=== PATIENT | male | born 1975 | race Caucasian/White ===

== ENCOUNTER 2019-05-17 08:02 | Inpatient (IN) | payer MEDICAID, OTHER ==
[2019-05-17] VITALS (16 sets, daily range): BP systolic 157–202; BP diastolic 82–110
[~2019-05-17] VITALS: Ht 177.8 cm; Wt 120.0 kg
[2019-05-17] MEDS: labetalol 20mg/4ml (5mg/ml) syringe IV PRN ×3 (08:45→11:07)
[2019-05-17 08:55] LABS: BASOPHILS # (AUTO) 0.1 X10'3 (0-0.2); EOSINOPHILS # (AUTO) 0.1 X10'3 (0-0.9); EOSINOPHILS % (AUTO) 0.9 % (0-6); HEMATOCRIT 38.9 % (42.0-52.0); LYMPHOCYTES % (AUTO) 8.6 % (21-51); MEAN CORPUSCULAR HGB CONC 33.4 g/dL (33.0-36.5); MEAN CORPUSCULAR VOLUME 74.9 FL (78-98); MEAN PLATELET VOLUME 8.7 FL (7.4-10.4); MONOCYTES # (AUTO) 0.8 X10'3 (0-0.9); MONOCYTES % (AUTO) 6.5 % (2-12); NEUTROPHILS # (AUTO) 9.7 X10'3 (1.8-7.7); PLATELET COUNT 276 X10'3 (140-440); RED BLOOD COUNT 5.19 X10'6 (4.70-6.10); RED CELL DISTRIBUTION WIDTH 15.6 % (11.5-14.5); WHITE BLOOD COUNT 11.7 X10'3 (4.5-11.0)
[2019-05-17 09:04] LABS: PARTIAL THROMBOPLASTIN TIME 30 SECONDS (22-32)
[2019-05-17 09:10] LABS: ALANINE AMINOTRANSFERASE 31 U/L (12-78); ALBUMIN 4.1 G/DL (3.4-5.0); ALBUMIN/GLOBULIN RATIO 1.1 (1.1-1.5); ALKALINE PHOSPHATASE 79 IU/L (46-116); ANION GAP 13 (8-16); ASPARTATE AMINO TRANSFERASE 18 U/L (10-37); BILIRUBIN,TOTAL 1.2 MG/DL (0.1-1.0); BLOOD UREA NITROGEN 18 MG/DL (7-18); BUN/CREATININE RATIO 12.2 (5.4-32.0); CHLORIDE 102 MMOL/L (99-107); CREATININE 1.47 MG/DL (0.60-1.10); GLUCOSE 104 MG/DL (70-104); SODIUM 141 MMOL/L (135-145); TOTAL CARBON DIOXIDE 25.8 MMOL/L (24-32); eGFR 52 ML/MIN
[2019-05-17] MEDS ORDERED: potassium Cl 20 mEq SR tablet PO ONE (10:00)
[2019-05-17 10:55] LABS: ETHANOL < 0.010 GM/DL (0.0-0.010)
[2019-05-17 11:09] LABS: URINE AMPHETAMINE SCREEN NEGATIVE (Neg); URINE BARBITUATE SCREEN NEGATIVE (Neg); URINE BENZODIAZEPINES SCREEN NEGATIVE (Neg); URINE CANNABINOID SCREEN NEGATIVE (Neg); URINE COCAINE SCREEN NEGATIVE (Neg); URINE METHADONE SCREEN NEGATIVE (Neg); URINE OPIATE SCREEN NEGATIVE (Neg); URINE PHENCYCLIDINE SCREEN NEGATIVE (Neg)
[2019-05-17] MEDS ORDERED: labetalol inj. 200 MG in normal saline 250ml IV soln 210 ML IV SCH ×2 (11:15→13:40)
[2019-05-17] MEDS ORDERED: furosemide 10 MG/1 ML 10ml inj IV ONE (11:15)
[2019-05-17] MEDS ORDERED: NO HOME MEDS (11:18)
--- NOTE | 2019-05-17 11:34 | NUR ---
called the pharmacy regarding pt labetol drip as per joseph from pharmacy they are currently working on and they will bring back whenever its prepared .will wait for the medication to start.
--- NOTE | 2019-05-17 13:18 | NUR ---
SPOKE TO DR SANCHEZ REGARDING THE LABETOLOL DRIP DOSING TO MAINTAIN THE MAP TO 60 MARCEL CAN WE INCREASE THE DRIP RATE TO 1 PER MD NO WE WANT HIS PRESSURE TO BE BELOW 220 .DO NOT CHANGE THE RATE LEAVE IT SAME ITS INFUSING.WILL FOLLOW THE ORDERS.
[2019-05-17] MEDS ORDERED: magnesium 4gm in 100ml NS 100 ML IV PRN (13:30)
[2019-05-17] MEDS ORDERED: magnesium 2GM in 50ml NS 50 ML IV PRN (13:30)
[2019-05-17] MEDS ORDERED: magnesium Cl slow-release 64mg tablet PO PRN (13:30)
[2019-05-17] MEDS ORDERED: acetaminophen 325mg tablet PO PRN (13:30)
[2019-05-17] MEDS ORDERED: ondansetron/PF 4mg/2ml inj IV PRN (13:30)
[2019-05-17] MEDS ORDERED: potassium CL 10mEq/100ml bag 100 ML IV PRN ×2 (13:30)
--- NOTE | 2019-05-17 14:27 | NUR ---
PT URINE OUTPUT 800 ML AFTER THE LASIX.
[2019-05-17] MEDS ORDERED: nitroGLYCERIN-Tridil 50MG/D5W 250 ML IV SCH (14:45)
[2019-05-17] MEDS: nitroGLYCERIN-Tridil 50MG/D5W 250 ML IV SCH (15:11)
--- NOTE | 2019-05-17 16:46 | NUR ---
Patient arrived to PCU and walked to bed. Patient has Nitro gtt running at 5mcg/kg/min. Patient is alert and oriented. Vital signs were obtained and bedside telemetry monitoring was initiated. Patient was oriented to room. Report was called by [facility] ED RN, who informed me that the goal for the Nitro gtt was to keep the patient's SBP below 220 or notify MD.
--- NOTE | 2019-05-17 17:52 | NUR ---
PAGER ID: [phone] MESSAGE: Nikolay Henry. Patient is c/o headache, can we have an order for Tylenol. Savanna [phone]
--- NOTE | 2019-05-17 18:19 | NUR ---
Problems reprioritized. Patient report given, questions answered & plan of care reviewed with Vangie DESHPANDE. Stable at transfer of care.
--- NOTE | 2019-05-17 18:37 | NUR ---
Patient in room PCU 3023. I have received report from Savanna DESHPANDE and Lizet RN and had the opportunity to ask questions and assume patient care.
[2019-05-17] MEDS: acetaminophen 325mg tablet PO PRN (18:38)
[2019-05-17] MEDS: lisinopril 5mg tablet PO SCH (18:40)
[2019-05-17] MEDS: potassium Cl 20 mEq SR tablet PO PRN (20:05)
--- NOTE | 2019-05-17 21:24 | NUR ---
Notified Dr Youisf of BP of 190/93. Patient is currently receiving a Nitro drip at 5mcg/kg/min. No changes at this time. Will continue to monitor.
[2019-05-18] VITALS (13 sets, daily range): BP systolic 153–197; BP diastolic 68–103
[2019-05-18] MEDS: potassium Cl 20 mEq SR tablet PO PRN (00:13)
--- NOTE | 2019-05-18 05:49 | NUR ---
Orientee documentation: I have reviewed and agree with all interventions, assessments performed and documented by Sanjuana DESHPANDE. [facility] Medication Administration: For this medication-pass time frame, all medication were reviewed, dispensed, administered and documented per hospital policy by Sanjuana DESHPANDE.
[2019-05-18 06:02] LABS: ALBUMIN 3.2 G/DL (3.4-5.0); ANION GAP 10 (8-16); BLOOD UREA NITROGEN 21 MG/DL (7-18); BUN/CREATININE RATIO 13.5 (5.4-32.0); CALCIUM 8.6 MG/DL (8.5-10.1); CHLORIDE 107 MMOL/L (99-107); CHOL/HDL RATIO 3.2 (0.00-4.99); CHOLESTEROL 151 MG/DL (0-200); CREATININE 1.55 MG/DL (0.60-1.10); GLUCOSE 100 MG/DL (70-104); HDL CHOLESTEROL 47 MG/DL (35-60); LDL CHOLESTEROL 97 MG/DL (50-100); POTASSIUM 3.5 MMOL/L (3.5-5.1); SODIUM 143 MMOL/L (135-145); TOTAL CARBON DIOXIDE 25.9 MMOL/L (24-32); TRIGLYCERIDES 72 MG/DL (20-135); eGFR 49 ML/MIN
[2019-05-18 06:06] LABS: BASOPHILS # (AUTO) 0.1 X10'3 (0-0.2); BASOPHILS % (AUTO) 0.5 % (0-1); EOSINOPHILS # (AUTO) 0.2 X10'3 (0-0.9); HEMATOCRIT 33.3 % (42.0-52.0); LYMPHOCYTES # (AUTO) 1.2 X10'3 (1.1-4.8); LYMPHOCYTES % (AUTO) 10.9 % (21-51); MEAN CORPUSCULAR HGB CONC 33.2 g/dL (33.0-36.5); MEAN CORPUSCULAR VOLUME 75.4 FL (78-98); MEAN PLATELET VOLUME 9.2 FL (7.4-10.4); MONOCYTES # (AUTO) 0.9 X10'3 (0-0.9); NEUTROPHILS # (AUTO) 8.9 X10'3 (1.8-7.7); NEUTROPHILS % (AUTO) 78.6 % (42-75); PLATELET COUNT 252 X10'3 (140-440); RED BLOOD COUNT 4.41 X10'6 (4.70-6.10); RED CELL DISTRIBUTION WIDTH 15.4 % (11.5-14.5); WHITE BLOOD COUNT 11.3 X10'3 (4.5-11.0)
--- NOTE | 2019-05-18 06:11 | NUR ---
Problems reprioritized. Patient report given, questions answered & plan of care reviewed with Savanna RN and Savanna RN.
--- NOTE | 2019-05-18 06:53 | NUR ---
Patient in room PCU 3013a. I have received report from CHARLEE Vences and CHARLEE Wei and had the opportunity to ask questions and assume patient care. Patient awake in bed, denies any distress or discomfort. Will continue to monitor.
[2019-05-18] MEDS: K and/or MAG REPLACEMENT MC SCH (07:01)
[2019-05-18] MEDS: lisinopril 5mg tablet PO SCH (07:09)
[2019-05-18] MEDS: furosemide 40mg/4ml inj IV SCH (13:03)
[2019-05-18] MEDS ORDERED: labetalol 100mg tablet PO ONE (13:15)
--- NOTE | 2019-05-18 13:15 | NUR ---
Dr. Santillan at bedside, new orders to d/c hydralazine and coreg and give one time dose labetalol 100mg PO x1.
[2019-05-18] MEDS: acetaminophen 325mg tablet PO PRN ×2 (13:27→19:48)
--- NOTE | 2019-05-18 14:22 | NUR ---
Paged Dr. Herman regarding medication changes: PAGER ID: [phone] MESSAGE: Re: [id number] Laron Link. FYI-Per Dr. Santillan, Hydralazine and Coreg stopped and he received one time dose of labetalol 100mg PO. Will continue to monitor BP and heart rate.
--- NOTE | 2019-05-18 15:36 | NUR ---
Dr. Santillan at bedside, new order noted for labetalol 100mg PO q8 hours. Order read back to provider and confirmed. Will continue to monitor patients blood pressure and heart rate.
[2019-05-18] MEDS ORDERED: hyDRALAzine 10mg tablet PO SCH (16:00)
--- NOTE | 2019-05-18 16:30 | NUR ---
Per vacular lab, patient needs to be NPO after midnight for vascular study on 05/19/19.
--- NOTE | 2019-05-18 18:25 | NUR ---
Problems reprioritized. Patient report given, questions answered & plan of care reviewed with CHARLEE Walker.
--- NOTE | 2019-05-18 18:27 | NUR ---
Patient in room PCU 3024O. I have received report from CHARLEE YAÑEZ AND CHARLEE YAÑEZ and had the opportunity to ask questions and assume patient care. PATIENT HAS NITROGLYCERIN GTT INFUSING AT 5 MCG/HR. STABLE AT THIS TIME. WILL CONTINUE TO MONITOR CLOSELY.
--- NOTE | 2019-05-18 18:28 | NUR ---
Orientee documentation: I have reviewed and agree with interventions, assessments performed and documented by Savanna Graves RN. [facility] Medication Administration: For this medication-pass time frame, medication were reviewed, dispensed, administered and documented per hospital policy by Savanna Graves RN.
[2019-05-18] MEDS: labetalol 100mg tablet PO SCH (19:43)
[2019-05-18] MEDS ORDERED: carVEDilol 3.125mg tablet PO SCH (20:00)
[2019-05-19] VITALS (12 sets, daily range): BP systolic 144–190; BP diastolic 76–124
[2019-05-19] MEDS: labetalol 100mg tablet PO SCH ×3 (00:23→15:14)
--- NOTE | 2019-05-19 04:30 | NUR ---
Student documentation: I have reviewed and agree with all interventions, assessments performed and documented by CHARLEE Gomes.
[2019-05-19 05:19] LABS: BASOPHILS # (AUTO) 0.1 X10'3 (0-0.2); BASOPHILS % (AUTO) 0.8 % (0-1); EOSINOPHILS # (AUTO) 0.3 X10'3 (0-0.9); EOSINOPHILS % (AUTO) 2.8 % (0-6); HEMOGLOBIN 11.3 g/dl (14.0-17.9); LYMPHOCYTES # (AUTO) 1.5 X10'3 (1.1-4.8); MEAN CORPUSCULAR HEMOGLOBIN 25.5 PG (27.0-31.0); MEAN CORPUSCULAR HGB CONC 34.3 g/dL (33.0-36.5); MEAN CORPUSCULAR VOLUME 74.4 FL (78-98); MEAN PLATELET VOLUME 8.9 FL (7.4-10.4); MONOCYTES # (AUTO) 0.8 X10'3 (0-0.9); MONOCYTES % (AUTO) 8.6 % (2-12); NEUTROPHILS # (AUTO) 6.9 X10'3 (1.8-7.7); NEUTROPHILS % (AUTO) 71.8 % (42-75); PLATELET COUNT 243 X10'3 (140-440); RED BLOOD COUNT 4.44 X10'6 (4.70-6.10); RED CELL DISTRIBUTION WIDTH 15.3 % (11.5-14.5); WHITE BLOOD COUNT 9.6 X10'3 (4.5-11.0)
[2019-05-19 05:41] LABS: ALBUMIN 3.2 G/DL (3.4-5.0); ANION GAP 9 (8-16); BLOOD UREA NITROGEN 22 MG/DL (7-18); BUN/CREATININE RATIO 12.6 (5.4-32.0); CALCIUM 8.7 MG/DL (8.5-10.1); CHLORIDE 107 MMOL/L (99-107); CREATININE 1.74 MG/DL (0.60-1.10); GLUCOSE 98 MG/DL (70-104); MAGNESIUM 2.1 MG/DL (1.5-2.4); POTASSIUM 3.4 MMOL/L (3.5-5.1); SODIUM 143 MMOL/L (135-145); TOTAL CARBON DIOXIDE 26.9 MMOL/L (24-32); eGFR 43 ML/MIN
--- NOTE | 2019-05-19 06:14 | NUR ---
Problems reprioritized. Patient report given, questions answered & plan of care reviewed with CHARLEE Acosta.
--- NOTE | 2019-05-19 06:18 | NUR ---
Patient in room PCU 3023. I have received report from Annette DESHPANDE and had the opportunity to ask questions and assume patient care. Pt is in bed sleeping, all needs met at this time.
[2019-05-19] MEDS: potassium Cl 20 mEq SR tablet PO PRN ×3 (07:13→17:33)
[2019-05-19] MEDS: furosemide 40mg/4ml inj IV SCH (07:13)
[2019-05-19] MEDS: lisinopril 5mg tablet PO SCH (07:13)
[2019-05-19] MEDS: K and/or MAG REPLACEMENT MC SCH (08:00)
--- NOTE | 2019-05-19 10:14 | NUR ---
Left voicemail to Dr. Herman to call back in regards to elevated BP. will continue to monitor.
--- NOTE | 2019-05-19 12:08 | NUR ---
Spoke to Dr. Virgil lopez inform that pt continues to have elevated BP most recent 171/83 (104), hr 83, No new orders at this time.
--- NOTE | 2019-05-19 14:38 | NUR ---
I SPOKE TO DR MARTINEZ. PT BP 190/100. REVIEWED MEDS. DR MARTINEZ ASKED THAT WE CALL DR JAIMES HE IS IN CHARGE OF PT BP MEDS. WE WILL SPEAK TO DR THEODORE DEGROOT.
--- NOTE | 2019-05-19 14:41 | NUR ---
DR JAIMES INFORMED OF BP ISSUE. HE WILL PLACE NEW ORDERS.
--- NOTE | 2019-05-19 14:41 | NUR ---
Called Dr. Santillan in regards to pt's uncontrolled BP most recent 190/103 (121) HR 84, he is aware and will enter a new medication for him.
[2019-05-19] MEDS: NIFEdipine XL 30mg tablet PO SCH ×2 (15:03→20:02)
--- NOTE | 2019-05-19 16:06 | NUR ---
Clarified Labetalol order w/ Dr. Santillan, New order for Labetalol PO 200 MG Q 8h.
[2019-05-19 16:11] LABS: CLARITY,URINE CLEAR (Clear); COLOR,URINE YELLOW (Yellow); GLUCOSE, URINE NEGATIVE (Neg); KETONES,URINE NEGATIVE (Neg); LEUKOCYTE ESTERASE ,URINE NEGATIVE (Neg); NITRITES, URINE NEGATIVE (Neg); OCCULT BLOOD,URINE NEGATIVE (Neg); PROTEIN,URINE NEGATIVE (Neg); UA COLLECTION TYPE CLN CATCH MIDSTREAM
[2019-05-19 17:16] LABS: UA EOSINOPHILS NO EOS /HPF
--- NOTE | 2019-05-19 18:21 | NUR ---
Problems reprioritized. Patient report given, questions answered & plan of care reviewed with Harjeet DESHPANDE.
[2019-05-19] MEDS: nitroGLYCERIN-Tridil 50MG/D5W 250 ML IV SCH (20:03)
[2019-05-20] VITALS (9 sets, daily range): BP systolic 120–164; BP diastolic 59–90
[2019-05-20] MEDS: labetalol 100mg tablet PO SCH ×4 (00:29→23:35)
[2019-05-20 07:16] LABS: BASOPHILS # (AUTO) 0.1 X10'3 (0-0.2); BASOPHILS % (AUTO) 0.9 % (0-1); EOSINOPHILS # (AUTO) 0.3 X10'3 (0-0.9); EOSINOPHILS % (AUTO) 2.8 % (0-6); HEMATOCRIT 32.8 % (42.0-52.0); HEMOGLOBIN 11.1 g/dl (14.0-17.9); LYMPHOCYTES # (AUTO) 1.4 X10'3 (1.1-4.8); LYMPHOCYTES % (AUTO) 15.2 % (21-51); MEAN CORPUSCULAR HEMOGLOBIN 25.5 PG (27.0-31.0); MEAN CORPUSCULAR HGB CONC 33.7 g/dL (33.0-36.5); MEAN CORPUSCULAR VOLUME 75.8 FL (78-98); MEAN PLATELET VOLUME 9.3 FL (7.4-10.4); MONOCYTES # (AUTO) 0.7 X10'3 (0-0.9); MONOCYTES % (AUTO) 7.8 % (2-12); NEUTROPHILS % (AUTO) 73.3 % (42-75); PLATELET COUNT 246 X10'3 (140-440); RED BLOOD COUNT 4.33 X10'6 (4.70-6.10); RED CELL DISTRIBUTION WIDTH 15.9 % (11.5-14.5); WHITE BLOOD COUNT 9.5 X10'3 (4.5-11.0)
[2019-05-20 07:31] LABS: ALBUMIN 3.2 G/DL (3.4-5.0); ANION GAP 10 (8-16); BLOOD UREA NITROGEN 29 MG/DL (7-18); BUN/CREATININE RATIO 16.6 (5.4-32.0); CALCIUM 8.6 MG/DL (8.5-10.1); CHLORIDE 107 MMOL/L (99-107); CREATININE 1.75 MG/DL (0.60-1.10); GLUCOSE 92 MG/DL (70-104); POTASSIUM 3.8 MMOL/L (3.5-5.1); SODIUM 143 MMOL/L (135-145); TOTAL CARBON DIOXIDE 26.4 MMOL/L (24-32); eGFR 43 ML/MIN
[2019-05-20] MEDS: furosemide 40mg/4ml inj IV SCH (07:57)
[2019-05-20] MEDS: lisinopril 5mg tablet PO SCH (07:57)
[2019-05-20] MEDS: NIFEdipine XL 30mg tablet PO SCH ×2 (07:57→20:18)
[2019-05-20] MEDS: K and/or MAG REPLACEMENT MC SCH (08:00)
[2019-05-20] MEDS: nitroGLYCERIN-Tridil 50MG/D5W 250 ML IV SCH (09:22)
--- NOTE | 2019-05-20 09:48 | NUR ---
Spoke to Dr. Ridley in regards to pt's improved BP, received orders to titrate Nitro to 2mcg/min and to inform him on how he tolerates it.
--- NOTE | 2019-05-20 11:33 | NUR ---
PAGER ID: [phone] MESSAGE: [id number]: FYI BP is trending up after decreasing Nitro to 2mcg, most recent BP 153/90 HR 77. Thanks Dave [id number]
[2019-05-20] MEDS: hyDRALAzine 10mg tablet PO SCH ×3 (12:04→23:35)
[2019-05-20] MEDS ORDERED: hydrALAZINE 20mg/ml inj. IV PRN (17:30)
--- NOTE | 2019-05-20 18:25 | NUR ---
Problems reprioritized. Patient report given, questions answered & plan of care reviewed with Harjeet DESHPANDE.
--- NOTE | 2019-05-20 19:09 | NUR ---
Patient in room PCU 3020F. I have received report from Dave DESHPANDE, and had the opportunity to ask questions and assume patient care
[2019-05-21 03:00] VITALS: BP 138/76
[2019-05-21 06:00] VITALS: BP 130/63
--- NOTE | 2019-05-21 06:22 | NUR ---
Problems reprioritized. Patient report given, questions answered & plan of care reviewed with Dave DESHPANDE
--- NOTE | 2019-05-21 06:48 | NUR ---
Patient in room PCU 3023. I have received report from Harjeet DESHPANDE and had the opportunity to ask questions and assume patient care. Pt is in bed sleeping, all needs met at this time. will continue to monitor.
[2019-05-21 07:04] LABS: BASOPHILS # (AUTO) 0.1 X10'3 (0-0.2); BASOPHILS % (AUTO) 0.7 % (0-1); EOSINOPHILS # (AUTO) 0.3 X10'3 (0-0.9); EOSINOPHILS % (AUTO) 3.1 % (0-6); HEMATOCRIT 35.1 % (42.0-52.0); HEMOGLOBIN 11.8 g/dl (14.0-17.9); LYMPHOCYTES # (AUTO) 1.4 X10'3 (1.1-4.8); LYMPHOCYTES % (AUTO) 14.5 % (21-51); MEAN CORPUSCULAR HGB CONC 33.6 g/dL (33.0-36.5); MEAN CORPUSCULAR VOLUME 74.4 FL (78-98); MONOCYTES # (AUTO) 0.9 X10'3 (0-0.9); MONOCYTES % (AUTO) 9.6 % (2-12); NEUTROPHILS # (AUTO) 6.8 X10'3 (1.8-7.7); NEUTROPHILS % (AUTO) 72.1 % (42-75); PLATELET COUNT 277 X10'3 (140-440); RED BLOOD COUNT 4.72 X10'6 (4.70-6.10); RED CELL DISTRIBUTION WIDTH 15.9 % (11.5-14.5); WHITE BLOOD COUNT 9.4 X10'3 (4.5-11.0)
[2019-05-21 07:17] LABS: ALBUMIN 3.3 G/DL (3.4-5.0); ANION GAP 7 (8-16); BLOOD UREA NITROGEN 33 MG/DL (7-18); CALCIUM 8.9 MG/DL (8.5-10.1); CHLORIDE 107 MMOL/L (99-107); CREATININE 1.74 MG/DL (0.60-1.10); GLUCOSE 96 MG/DL (70-104); MAGNESIUM 2.2 MG/DL (1.5-2.4); POTASSIUM 3.7 MMOL/L (3.5-5.1); SODIUM 141 MMOL/L (135-145); TOTAL CARBON DIOXIDE 27.1 MMOL/L (24-32); eGFR 43 ML/MIN
[2019-05-21] MEDS: lisinopril 5mg tablet PO SCH (07:29)
[2019-05-21] MEDS: furosemide 40mg/4ml inj IV SCH (07:30)
[2019-05-21] MEDS: labetalol 100mg tablet PO SCH (07:30)
[2019-05-21] MEDS: NIFEdipine XL 30mg tablet PO SCH (07:30)
[2019-05-21] MEDS: hyDRALAzine 10mg tablet PO SCH (07:30)
[2019-05-21] MEDS: K and/or MAG REPLACEMENT MC SCH (08:00)
[2019-05-21] MEDS ORDERED: PRO30XLT PO (11:51)
[2019-05-21] MEDS ORDERED: LABE100T5 PO (11:51)
[2019-05-21] MEDS ORDERED: hyDRALAzine tablet PO (11:51)
[2019-05-21] MEDS ORDERED: LISI-642 PO (11:51)
--- NOTE | 2019-05-21 13:09 | NUR ---
Pt is stable for discharge per md order, discharge instructions reviewed w/ pt and all questions answered, new med prescriptions called in to [facility] in [place] per pt preference, mobile 65 removed and returned, PIV dc'ed and clean dry dressing in place, pt is walked down to [facility] with hospital staff, pt discharged at 1250 w/ in private vehicle, all belongings w/ pt at time of discharge.
== END 2019-05-21 12:52 | disposition home or self-care (01) | DRG 194 ==
LOC: ER 08:03 → PCU 3S 16:39
PROVIDERS: ADMIT Internal Medicine; ATTEND Internal Medicine
DX: I13.0 Hypertensive heart and chronic kidney disease with heart failure and stage 1 through stage 4 chronic kidney disease, or unspecified chronic kidney disease (principal); N17.8 Other acute kidney failure; N17.9 Acute kidney failure, unspecified; I50.33 Acute on chronic diastolic (congestive) heart failure; I16.0 Hypertensive urgency; N18.9 Chronic kidney disease, unspecified; I16.1 Hypertensive emergency; Z87.891 Personal history of nicotine dependence; I12.9 Hypertensive chronic kidney disease with stage 1 through stage 4 chronic kidney disease, or unspecified chronic kidney disease
CPT/HCPCS: 36415; 71045; 80048; 80053; 80061; 80305; 80320; 81003; 83735; 84443; 84484; 85025; 85610; 85730; 87081; 87207; 93005; 93306; 93975; 96374; 96375; 99291; G0378; J0360; J1940; J3490; J7050

== ENCOUNTER 2023-11-22 12:28 | Inpatient (IN) | payer MEDICAID, OTHER, SELFPAY ==
[~2023-11-22] VITALS: Ht 177.8 cm; Wt 96.2 kg
[~2023-11-22 12:28] MED LIST: LABE100T8 PO; LISI-642 PO; PRO30XLT PO; hyDRALAzine tablet PO
[2023-11-22 13:02] LABS: BASOPHILS # (AUTO) 0.1 X10'3 (0-0.2); BASOPHILS % (AUTO) 0.5 % (0-1); EOSINOPHILS # (AUTO) 0.1 X10'3 (0-0.9); EOSINOPHILS % (AUTO) 0.4 % (0-6); HEMATOCRIT 41.8 % (42.0-52.0); HEMOGLOBIN 13.7 g/dl (14.0-17.9); LYMPHOCYTES # (AUTO) 0.6 X10'3 (1.1-4.8); LYMPHOCYTES % (AUTO) 4.8 % (21-51); MEAN CORPUSCULAR HGB CONC 32.7 g/dL (33.0-36.5); MEAN CORPUSCULAR VOLUME 76.6 FL (78-98); MEAN PLATELET VOLUME 9.8 FL (7.4-10.4); MONOCYTES # (AUTO) 0.8 X10'3 (0-0.9); MONOCYTES % (AUTO) 6.4 % (2-12); NEUTROPHILS # (AUTO) 10.6 X10'3 (1.8-7.7); NEUTROPHILS % (AUTO) 87.9 % (42-75); PLATELET COUNT 237 X10'3 (140-440); RED BLOOD COUNT 5.46 X10'6 (4.70-6.10); RED CELL DISTRIBUTION WIDTH 15.4 % (11.5-14.5); WHITE BLOOD COUNT 12.1 X10'3 (4.5-11.0)
[2023-11-22 13:14] LABS: ANION GAP 12 (8-16); BLOOD UREA NITROGEN 32 MG/DL (7-18); BUN/CREATININE RATIO 10.8 (10.0-20.0); CALCIUM 9.2 MG/DL (8.5-10.1); CHLORIDE 102 MMOL/L (99-107); CREATININE 2.97 MG/DL (0.60-1.10); GLUCOSE 107 MG/DL (70-104); POTASSIUM 3.4 MMOL/L (3.5-5.1); PRO BRAIN NATRIURETIC PEPTIDE 29135 PG/ML (0-125); SODIUM 141 MMOL/L (135-145); TOTAL CARBON DIOXIDE 27.2 MMOL/L (24-32); eCRCL 31 ML/MIN; eGFR 23 ML/MIN
[2023-11-22 13:47] LABS: PROTHROMBIN TIME 10.9 SECONDS (9.0-12.0)
[2023-11-22] MEDS: niCARDipine-NS 40mg/200ml IVPB IV SCH (14:13)
[2023-11-22] MEDS: morphine 4 MG/ML inj SYRINge IV STA (15:37)
[2023-11-22] MEDS: ondansetron/PF 4mg/2ml inj IV STA (15:37)
[2023-11-22] MEDS ORDERED: magnesium 2GM in 50ml NS 50 ML IV PRN (16:10)
[2023-11-22] MEDS ORDERED: mag hydrox/Alum hydrox/simeth 30ml oral suspension PO PRN (16:10)
[2023-11-22] MEDS ORDERED: magnesium Cl slow-release 64mg tablet PO PRN (16:10)
[2023-11-22] MEDS ORDERED: acetaminophen 325mg tablet PO PRN (16:10)
[2023-11-22] MEDS ORDERED: ondansetron/PF 4mg/2ml inj IV PRN (16:10)
[2023-11-22] MEDS ORDERED: magnesium 4gm in 100ml NS 100 ML IV PRN (16:10)
[2023-11-22] MEDS ORDERED: potassium Cl 40MEQ/1/2NS 520ml 520 ML IV PRN (16:10)
[2023-11-22] MEDS ORDERED: nitroGLYCERIN 25mg/250mL D5W 250 ML IV SCH (16:35)
[2023-11-22 16:45] LABS: GLUCOSE,BODY FLUID 107 MG/DL; LDH,BODY FLUID 95 U/L
[2023-11-22 16:51] LABS: HEMOGLOBIN A1C 4.8 % (4.5-6.2)
[2023-11-22 17:00] LABS: MAGNESIUM 2.2 MG/DL (1.5-2.4)
[2023-11-22] MEDS: nitroGLYCERIN-Tridil 50MG/D5W 250 ML IV SCH (17:20)
[2023-11-22] MEDS: metoprolol succinate 25mg (24-HOUR) SR. Tablet PO SCH (17:31)
[2023-11-22] MEDS: potassium Cl 20 mEq SR tablet PO PRN (17:34)
[2023-11-22 17:40] LABS: LYMPHOCYTES,BODY FLUID 64 %; MONOCYTES,BODY FLUID 33 %; NEUTROPHILS,BODY FLUID 3 %
[2023-11-22 17:44] LABS: BF RBC COUNT 145 /CU MM; BF WBC COUNT 295 /CU MM (0-1000); BFAPPEAR CLEAR; BFCOLOR YELLOW; BFSOURCE RIGHT PLEURAL FLD; BFVOLUME 23 ML
[2023-11-22 17:55] LABS: BILIRUBIN,URINE NEGATIVE (Neg); CLARITY,URINE CLEAR (Clear); COLOR,URINE YELLOW (Yellow); GLUCOSE, URINE NEGATIVE (Neg); KETONES,URINE TRACE mg/dl (Neg); LEUKOCYTE ESTERASE ,URINE NEGATIVE (Neg); NITRITES, URINE NEGATIVE (Neg); OCCULT BLOOD,URINE TRACE-INTACT (Neg); PH,URINE 6.5 (4.8-8.0); PROTEIN,URINE >=300 mg/dl (Neg); UROBILINOGEN,URINE 0.2 E.U/dL (0.2-1.0)
[2023-11-22 18:01] LABS: UA COLLECTION TYPE FOLEY CATH
[2023-11-22 18:03] LABS: CELLULAR CAST 0-4 /LPF (NEGATIVE); SQUAMOUS EPITHELIAL CELL,UR FEW /LPF (FEW)
[2023-11-22 18:04] LABS: BACTERIA,URINE FEW /HPF (Neg); RBC,URINE 0-2 /HPF (0-2); WBC,URINE 0-4 /HPF (0-4)
[2023-11-22 18:05] LABS: TOTAL PROTEIN,URINE RANDOM 441.6 MG/DL
[2023-11-22 18:07] LABS: URINE AMPHETAMINE SCREEN NEGATIVE (Neg); URINE BARBITUATE SCREEN NEGATIVE (Neg); URINE BENZODIAZEPINES SCREEN NEGATIVE (Neg); URINE CANNABINOID SCREEN NEGATIVE (Neg); URINE COCAINE SCREEN NEGATIVE (Neg); URINE METHADONE SCREEN NEGATIVE (Neg); URINE OPIATE SCREEN NEGATIVE (Neg); URINE PHENCYCLIDINE SCREEN NEGATIVE (Neg)
[2023-11-22 19:30] VITALS: BP 186/108; PULSE 90; RESP 16; TEMP 98; O2SAT 93
[2023-11-22] MEDS ORDERED: furosemide 20 MG/2 ML vial IV SCH (20:00)
[2023-11-22] MEDS: K and/or MAG REPLACEMENT MC SCH (20:54)
[2023-11-22] MEDS: docusate sod 100mg capsule PO SCH (20:54)
[2023-11-22] MEDS: furosemide 40mg/4ml inj IV SCH (20:54)
[2023-11-22] MEDS: heparin, porcine 5000 units/ml vial SQ SCH (20:54)
[2023-11-22 22:00] VITALS: BP 176/102; PULSE 87; RESP 18; TEMP 98.2; O2SAT 96
[2023-11-22 23:38] VITALS: RESP 18; O2SAT 96
[2023-11-23] VITALS (17 sets, daily range): BP systolic 150–214; BP diastolic 82–126; PULSE 62–88; RESP 18–23; TEMP 97.8–98.2; O2SAT 92–99
[2023-11-23 06:51] LABS: BASOPHILS # (AUTO) 0.1 X10'3 (0-0.2); EOSINOPHILS # (AUTO) 0.1 X10'3 (0-0.9); HEMOGLOBIN 11.6 g/dl (14.0-17.9); LYMPHOCYTES # (AUTO) 0.5 X10'3 (1.1-4.8); WHITE BLOOD COUNT 10.5 X10'3 (4.5-11.0)
[2023-11-23 06:54] LABS: ABSOLUTE RETICS # 25500 /CUMM (23000-93000); BASOPHILS % (AUTO) 0.6 % (0-1); EOSINOPHILS % (AUTO) 0.9 % (0-6); HEMATOCRIT 33.8 % (42.0-52.0); LYMPHOCYTES % (AUTO) 4.8 % (21-51); MEAN CORPUSCULAR HEMOGLOBIN 26.4 PG (27.0-31.0); MEAN CORPUSCULAR HGB CONC 34.3 g/dL (33.0-36.5); MEAN CORPUSCULAR VOLUME 76.9 FL (78-98); MEAN PLATELET VOLUME 9.8 FL (7.4-10.4); MONOCYTES # (AUTO) 0.9 X10'3 (0-0.9); MONOCYTES % (AUTO) 8.5 % (2-12); NEUTROPHILS % (AUTO) 85.2 % (42-75); PLATELET COUNT 192 X10'3 (140-440); RED BLOOD COUNT 4.39 X10'6 (4.70-6.10); RED CELL DISTRIBUTION WIDTH 14.6 % (11.5-14.5); RETICULOCYTE % (AUTO) 0.6 % (0.5-1.5)
[2023-11-23 07:39] LABS: ALANINE AMINOTRANSFERASE 20 U/L (12-78); ALBUMIN/GLOBULIN RATIO 0.9 (1.1-1.5); ALKALINE PHOSPHATASE 62 IU/L (46-116); ANION GAP 11 (8-16); ASPARTATE AMINO TRANSFERASE 21 U/L (10-37); BILIRUBIN,TOTAL 0.9 MG/DL (0.1-1.0); BLOOD UREA NITROGEN 35 MG/DL (7-18); BUN/CREATININE RATIO 10.5 (10.0-20.0); CALCIUM 8.5 MG/DL (8.5-10.1); CHLORIDE 105 MMOL/L (99-107); CHOL/HDL RATIO 2.1 (0.00-4.99); CHOLESTEROL 143 MG/DL (0-200); CREATININE 3.32 MG/DL (0.60-1.10); FERRITIN 90 NG/ML (26-388); GLUCOSE 97 MG/DL (70-104); HDL CHOLESTEROL 69 MG/DL (35-60); LDL CHOLESTEROL 57 MG/DL (50-100); MAGNESIUM 2.2 MG/DL (1.5-2.4); PHOSPHORUS 5.3 MG/DL (2.3-4.5); POTASSIUM 4.4 MMOL/L (3.5-5.1); SODIUM 141 MMOL/L (135-145); TOTAL CARBON DIOXIDE 25.5 MMOL/L (24-32); TOTAL PROTEIN 6.4 G/DL (6.4-8.2); TRIGLYCERIDES 41 MG/DL (20-135); eCRCL 28 ML/MIN; eGFR 20 ML/MIN
[2023-11-23 08:21] LABS: IRON 24 UG/DL (53-167)
[2023-11-23 09:07] LABS: LACTATE DEHYDROGENASE 197 U/L (85-227)
[2023-11-23] MEDS ORDERED: NO HOME MEDS (11:08)
[2023-11-23] MEDS: amLODIPine 5mg tablet PO SCH (12:58)
[2023-11-23] MEDS: niCARDipine-NS 40mg/200ml IVPB 200 ML IV SCH (15:17)
[2023-11-23] MEDS: chlorthalidone 25mg tablet PO SCH (16:35)
[2023-11-23] MEDS: CefTRIAXone/D5W-Rocephin 1gm 50 ML IV SCH (19:17)
[2023-11-23] MEDS: azithromycin/NS 500mg/250ml 250 ML IV SCH (19:54)
[2023-11-24] VITALS (16 sets, daily range): BP systolic 166–189; BP diastolic 77–98; PULSE 72–86; RESP 15–21; TEMP 97–98.8; O2SAT 94–95
[2023-11-24] MEDS: amLODIPine 5mg tablet PO SCH (07:45)
[2023-11-24 07:56] LABS: BASOPHILS # (AUTO) 0.1 X10'3 (0-0.2); BASOPHILS % (AUTO) 0.8 % (0-1); EOSINOPHILS # (AUTO) 0.2 X10'3 (0-0.9); EOSINOPHILS % (AUTO) 1.7 % (0-6); HEMATOCRIT 35.4 % (42.0-52.0); HEMOGLOBIN 12.1 g/dl (14.0-17.9); LYMPHOCYTES # (AUTO) 0.9 X10'3 (1.1-4.8); LYMPHOCYTES % (AUTO) 8.7 % (21-51); MEAN CORPUSCULAR HEMOGLOBIN 26.2 PG (27.0-31.0); MEAN CORPUSCULAR HGB CONC 34.2 g/dL (33.0-36.5); MEAN CORPUSCULAR VOLUME 76.6 FL (78-98); MEAN PLATELET VOLUME 9.9 FL (7.4-10.4); MONOCYTES # (AUTO) 0.9 X10'3 (0-0.9); MONOCYTES % (AUTO) 8.2 % (2-12); NEUTROPHILS # (AUTO) 8.5 X10'3 (1.8-7.7); NEUTROPHILS % (AUTO) 80.6 % (42-75); PLATELET COUNT 199 X10'3 (140-440); RED BLOOD COUNT 4.62 X10'6 (4.70-6.10); RED CELL DISTRIBUTION WIDTH 14.5 % (11.5-14.5); WHITE BLOOD COUNT 10.6 X10'3 (4.5-11.0)
[2023-11-24 08:27] LABS: ALANINE AMINOTRANSFERASE 20 U/L (12-78); ALBUMIN/GLOBULIN RATIO 0.8 (1.1-1.5); ALKALINE PHOSPHATASE 72 IU/L (46-116); ANION GAP 10 (8-16); ASPARTATE AMINO TRANSFERASE 19 U/L (10-37); BILIRUBIN,TOTAL 0.9 MG/DL (0.1-1.0); BLOOD UREA NITROGEN 42 MG/DL (7-18); CALCIUM 8.5 MG/DL (8.5-10.1); CHLORIDE 104 MMOL/L (99-107); CREATININE 3.49 MG/DL (0.60-1.10); GLUCOSE 89 MG/DL (70-104); PHOSPHORUS 3.7 MG/DL (2.3-4.5); POTASSIUM 3.1 MMOL/L (3.5-5.1); SODIUM 141 MMOL/L (135-145); TOTAL CARBON DIOXIDE 26.9 MMOL/L (24-32); TOTAL PROTEIN 6.8 G/DL (6.4-8.2); eCRCL 27 ML/MIN; eGFR 19 ML/MIN
[2023-11-24] MEDS ORDERED: hyDRALAzine 10mg tablet PO SCH (11:10)
[2023-11-24] MEDS: potassium chloride 10mEq ER tablet PO SCH (12:15)
[2023-11-24] MEDS: hydrALAZINE 25 MG tablet PO ONE (12:20)
[2023-11-24 12:46] LABS: THYROID STIMULATING HORMONE 1.47 ulU/ml (0.34-4.50)
[2023-11-24 13:16] LABS: FREE T4 (FREE THYROXINE) 1.2 NG/DL (0.73-1.40)
[2023-11-24] MEDS: hydrALAZINE 20mg/ml inj. IV PRN (15:35)
[2023-11-24] MEDS: hydrALAZINE 25 MG tablet PO SCH ×2 (16:40→23:58)
[2023-11-24] MEDS ORDERED: metoprolol tartrate 1mg/ml inj IV PRN (16:50)
[2023-11-24] MEDS ORDERED: nitroGLYCERIN 0.4mg SUBLingual tab SL PRN (16:50)
[2023-11-24] MEDS ORDERED: aminophylline 250mg/10ml inj. IV PRN (16:50)
[2023-11-24] MEDS: magnesium hydroxide 30ml (MOM) UD suspension PO PRN (19:57)
[2023-11-24] MEDS ORDERED: furosemide 20MG tablet PO SCH (20:00)
[2023-11-24] MEDS: metoprolol tartrate 1mg/ml inj IV ONE (23:57)
[2023-11-25] VITALS (22 sets, daily range): BP systolic 148–192; BP diastolic 61–97; PULSE 63–90; RESP 12–32; TEMP 97.6–98.9; O2SAT 95–98
[2023-11-25] MEDS: niCARDipine-NS 40mg/200ml IVPB 200 ML IV SCH (01:08)
[2023-11-25 06:32] LABS: BASOPHILS # (AUTO) 0.1 X10'3 (0-0.2); BASOPHILS % (AUTO) 0.8 % (0-1); EOSINOPHILS # (AUTO) 0.2 X10'3 (0-0.9); EOSINOPHILS % (AUTO) 1.5 % (0-6); HEMOGLOBIN 13.1 g/dl (14.0-17.9); LYMPHOCYTES # (AUTO) 0.8 X10'3 (1.1-4.8); LYMPHOCYTES % (AUTO) 7.2 % (21-51); MEAN CORPUSCULAR HEMOGLOBIN 25.5 PG (27.0-31.0); MEAN CORPUSCULAR HGB CONC 33.6 g/dL (33.0-36.5); MEAN PLATELET VOLUME 9.8 FL (7.4-10.4); MONOCYTES % (AUTO) 8.2 % (2-12); NEUTROPHILS # (AUTO) 9.7 X10'3 (1.8-7.7); NEUTROPHILS % (AUTO) 82.3 % (42-75); PLATELET COUNT 245 X10'3 (140-440); RED BLOOD COUNT 5.13 X10'6 (4.70-6.10); RED CELL DISTRIBUTION WIDTH 14.7 % (11.5-14.5); WHITE BLOOD COUNT 11.7 X10'3 (4.5-11.0)
[2023-11-25 07:05] LABS: HIV ANTIBODY 1&2 RAPID NON-REACTIVE (Neg)
[2023-11-25 07:12] LABS: ALANINE AMINOTRANSFERASE 23 U/L (12-78); ALBUMIN 3.1 G/DL (3.4-5.0); ALBUMIN/GLOBULIN RATIO 0.8 (1.1-1.5); ALKALINE PHOSPHATASE 77 IU/L (46-116); ANION GAP 12 (8-16); ASPARTATE AMINO TRANSFERASE 20 U/L (10-37); BILIRUBIN,TOTAL 1.1 MG/DL (0.1-1.0); BLOOD UREA NITROGEN 42 MG/DL (7-18); BUN/CREATININE RATIO 14.1 (10.0-20.0); CALCIUM 8.5 MG/DL (8.5-10.1); CHLORIDE 100 MMOL/L (99-107); CREATININE 2.98 MG/DL (0.60-1.10); GLUCOSE 100 MG/DL (70-104); LACTATE DEHYDROGENASE 166 U/L (85-227); SODIUM 139 MMOL/L (135-145); TOTAL CARBON DIOXIDE 27.3 MMOL/L (24-32); eCRCL 31 ML/MIN; eGFR 23 ML/MIN
[2023-11-25] MEDS: potassium Cl 20 mEq SR tablet PO PRN ×2 (07:47→19:53)
[2023-11-25] MEDS ORDERED: spironolactone 25 MG tablet PO SCH (08:30)
[2023-11-25 08:50] LABS: RHEUM FACTOR QUAL REFLEX TITER NEGATIVE (Neg)
[2023-11-25] MEDS: regadenoson 0.4mg/5ml syringe IV PRN (09:14)
[2023-11-25] MEDS ORDERED: SODIUM BICARBONATE 150MEQ IN D5W 1,000 ML IV ONE (12:35)
[2023-11-25] MEDS: losartan 50mg tablet PO SCH (16:11)
[2023-11-25] MEDS ORDERED: acetylcysteine 200 MG/ml 4ml vial PO SCH (20:00)
[2023-11-26] VITALS (8 sets, daily range): BP systolic 143–184; BP diastolic 73–89; PULSE 57–77; RESP 11–21; TEMP 97.5–98.9; O2SAT 96–98
[2023-11-26 08:26] LABS: BASOPHILS # (AUTO) 0.1 X10'3 (0-0.2); BASOPHILS % (AUTO) 0.6 % (0-1); EOSINOPHILS # (AUTO) 0.2 X10'3 (0-0.9); EOSINOPHILS % (AUTO) 1.6 % (0-6); HEMATOCRIT 39.4 % (42.0-52.0); HEMOGLOBIN 13.1 g/dl (14.0-17.9); LYMPHOCYTES # (AUTO) 0.7 X10'3 (1.1-4.8); MEAN CORPUSCULAR HEMOGLOBIN 25.6 PG (27.0-31.0); MEAN CORPUSCULAR HGB CONC 33.1 g/dL (33.0-36.5); MEAN CORPUSCULAR VOLUME 77.1 FL (78-98); MEAN PLATELET VOLUME 9.8 FL (7.4-10.4); MONOCYTES # (AUTO) 1.2 X10'3 (0-0.9); NEUTROPHILS # (AUTO) 7.8 X10'3 (1.8-7.7); NEUTROPHILS % (AUTO) 78.8 % (42-75); PLATELET COUNT 238 X10'3 (140-440); RED BLOOD COUNT 5.11 X10'6 (4.70-6.10); RED CELL DISTRIBUTION WIDTH 14.7 % (11.5-14.5); WHITE BLOOD COUNT 9.9 X10'3 (4.5-11.0)
[2023-11-26] MEDS: spironolactone 50 MG tablet PO SCH (08:33)
[2023-11-26 09:02] LABS: ALANINE AMINOTRANSFERASE 15 U/L (12-78); ALBUMIN 2.8 G/DL (3.4-5.0); ALBUMIN/GLOBULIN RATIO 0.8 (1.1-1.5); ALKALINE PHOSPHATASE 66 IU/L (46-116); ANION GAP 10 (8-16); ASPARTATE AMINO TRANSFERASE 15 U/L (10-37); BLOOD UREA NITROGEN 41 MG/DL (7-18); BUN/CREATININE RATIO 14.3 (10.0-20.0); CALCIUM 8.6 MG/DL (8.5-10.1); CHLORIDE 102 MMOL/L (99-107); CREATININE 2.87 MG/DL (0.60-1.10); GLUCOSE 101 MG/DL (70-104); PHOSPHORUS 3.3 MG/DL (2.3-4.5); POTASSIUM 3.7 MMOL/L (3.5-5.1); SODIUM 137 MMOL/L (135-145); TOTAL CARBON DIOXIDE 25.1 MMOL/L (24-32); TOTAL PROTEIN 6.5 G/DL (6.4-8.2); eCRCL 33 ML/MIN; eGFR 24 ML/MIN
[2023-11-26] MEDS: losartan 50mg tablet PO ONE (16:20)
[2023-11-26] MEDS: ringers solution, lacted 1,000 ML IV ONE (16:20)
[2023-11-26 16:29] LABS: ANTINUCLEAR ANTIBODIES Negative (Negative); ANTISTREPTOLYSIN O AB 63.5 IU/mL (0.0-200.0); COMPLEMENT C3, SERUM 107 mg/dL (82-167); COMPLEMENT C4, SERUM 28 mg/dL (12-38); HBSAG SCREEN Negative (Negative)
[2023-11-27] VITALS (17 sets, daily range): BP systolic 119–213; BP diastolic 53–98; PULSE 56–85; RESP 12–22; TEMP 97.7–98.8; O2SAT 96–99
[2023-11-27] MEDS: losartan 50mg tablet PO SCH (07:42)
[2023-11-27 08:36] LABS: BASOPHILS # (AUTO) 0.1 X10'3 (0-0.2); BASOPHILS % (AUTO) 0.6 % (0-1); EOSINOPHILS # (AUTO) 0.2 X10'3 (0-0.9); EOSINOPHILS % (AUTO) 2.2 % (0-6); HEMATOCRIT 38.5 % (42.0-52.0); HEMOGLOBIN 13.1 g/dl (14.0-17.9); LYMPHOCYTES # (AUTO) 0.6 X10'3 (1.1-4.8); LYMPHOCYTES % (AUTO) 5.9 % (21-51); MEAN CORPUSCULAR HEMOGLOBIN 26.3 PG (27.0-31.0); MEAN CORPUSCULAR HGB CONC 34.1 g/dL (33.0-36.5); MEAN CORPUSCULAR VOLUME 77.1 FL (78-98); MEAN PLATELET VOLUME 9.4 FL (7.4-10.4); MONOCYTES # (AUTO) 1.2 X10'3 (0-0.9); MONOCYTES % (AUTO) 12.1 % (2-12); NEUTROPHILS # (AUTO) 7.9 X10'3 (1.8-7.7); NEUTROPHILS % (AUTO) 79.2 % (42-75); PLATELET COUNT 265 X10'3 (140-440)
[2023-11-27 08:51] LABS: PRE OP PARTIAL THROMB. TIME 33 SECONDS (22-32); PROTHROMBIN TIME 10.9 SECONDS (9.0-12.0)
[2023-11-27 08:56] LABS: ALANINE AMINOTRANSFERASE 21 U/L (12-78); ALBUMIN 2.7 G/DL (3.4-5.0); ALBUMIN/GLOBULIN RATIO 0.7 (1.1-1.5); ALKALINE PHOSPHATASE 65 IU/L (46-116); ANION GAP 8 (8-16); ASPARTATE AMINO TRANSFERASE 22 U/L (10-37); BILIRUBIN,TOTAL 0.7 MG/DL (0.1-1.0); BLOOD UREA NITROGEN 44 MG/DL (7-18); BUN/CREATININE RATIO 14.6 (10.0-20.0); CALCIUM 8.2 MG/DL (8.5-10.1); CHLORIDE 103 MMOL/L (99-107); CREATININE 3.01 MG/DL (0.60-1.10); GLUCOSE 100 MG/DL (70-104); MAGNESIUM 1.9 MG/DL (1.5-2.4); PHOSPHORUS 3.9 MG/DL (2.3-4.5); POTASSIUM 3.9 MMOL/L (3.5-5.1); SODIUM 137 MMOL/L (135-145); TOTAL CARBON DIOXIDE 25.8 MMOL/L (24-32); TOTAL PROTEIN 6.6 G/DL (6.4-8.2); eCRCL 31 ML/MIN; eGFR 22 ML/MIN
[2023-11-27 16:05] LABS: ATYPICAL PANCA <1:20 titer (Neg:<1:20); CYTOPLASMIC (C-ANCA) <1:20 titer (Neg:<1:20); PERINUCLEAR (P-ANCA) <1:20 titer (Neg:<1:20)
[2023-11-27] MEDS ORDERED: propofol inj 20 ML IV ONE (17:25)
[2023-11-27] MEDS ORDERED: MIDAZolam 1mg/ml 10ml vial ONE (17:25)
[2023-11-27] MEDS ORDERED: fentaNYL /PF 50mcg/ml 5ml ampule ONE (17:25)
[2023-11-27] MEDS ORDERED: rocuronium 10mg/ml inj IV ONE ×2 (17:30)
[2023-11-27] MEDS ORDERED: sevoflurane 250ml liquid IH ONE (17:36)
[2023-11-27] MEDS ORDERED: ceFAZolin 1000mg inj ONE ×2 (18:45)
[2023-11-27] MEDS: TALC 4 GM VIAL ***intrapleural administration only IX ONE ×2 (19:05→21:55)
[2023-11-27] MEDS ORDERED: morphine 4 MG/ML inj SYRINge IV PRN ×2 (19:15→20:45)
[2023-11-27] MEDS ORDERED: ringers solution, lacted 1,000 ML IV SCH (19:15)
[2023-11-27] MEDS ORDERED: ondansetron/PF 4mg/2ml inj IV PRN ×2 (19:15→20:45)
[2023-11-27] MEDS ORDERED: meperidine/PF 25mg/ml syringe IV PRN ×3 (19:15)
[2023-11-27] MEDS ORDERED: morphine 2 MG/ML inj. syringe IV PRN ×2 (19:15→20:45)
[2023-11-27] MEDS ORDERED: albuterol 2.5 MG/3 ML nebule NEB PRN (20:45)
[2023-11-27] MEDS ORDERED: metoclopramide 5 mg/ml inj IV PRN (20:45)
[2023-11-27] MEDS: propofol 1000mg/100ml bottle 100 ML IV SCH (21:00)
[2023-11-27] MEDS: FENTANYL-0.9 % NACL/PF 100 ML IV PRN (21:02)
[2023-11-27 21:05] LABS: ABG OXYGEN SATURATION 98.8 % (94-97); ABG PCO2 (T) 38.1 mmHg (35.0-48.0); ABG PH (T) 7.377 (7.340-7.440); ABG PO2 (T) 129.6 mmHg (75.0-100.0); FCOHb 0.8 % (0.0-3.9); FHHb 1.2 % (0.0-5.0); FMetHb 0.3 % (0.0-1.5); FO2Hb 97.7 % (94-97); PATIENT TEMPERATURE 36.4; RESPIRATORY RATE 12 b/min; TIDAL VOLUME 600 mL; TOTAL HEMOGLOBIN 12.8 G/dl (14.0-17.9)
[2023-11-27 21:15] LABS: BASOPHILS % (AUTO) 0.3 % (0-1); EOSINOPHILS # (AUTO) 0.2 X10'3 (0-0.9); EOSINOPHILS % (AUTO) 1.1 % (0-6); HEMATOCRIT 36.5 % (42.0-52.0); LYMPHOCYTES # (AUTO) 0.6 X10'3 (1.1-4.8); LYMPHOCYTES % (AUTO) 3.7 % (21-51); MEAN CORPUSCULAR HEMOGLOBIN 25.3 PG (27.0-31.0); MEAN CORPUSCULAR HGB CONC 32.9 g/dL (33.0-36.5); MEAN CORPUSCULAR VOLUME 76.9 FL (78-98); MEAN PLATELET VOLUME 9.3 FL (7.4-10.4); MONOCYTES # (AUTO) 1.2 X10'3 (0-0.9); MONOCYTES % (AUTO) 7.8 % (2-12); NEUTROPHILS % (AUTO) 87.1 % (42-75); PLATELET COUNT 326 X10'3 (140-440); RED BLOOD COUNT 4.75 X10'6 (4.70-6.10)
[2023-11-27 21:26] LABS: ALBUMIN 2.4 G/DL (3.4-5.0); ANION GAP 10 (8-16); BLOOD UREA NITROGEN 45 MG/DL (7-18); BUN/CREATININE RATIO 13.4 (10.0-20.0); CALCIUM 8.6 MG/DL (8.5-10.1); CHLORIDE 106 MMOL/L (99-107); CREATININE 3.36 MG/DL (0.60-1.10); GLUCOSE 124 MG/DL (70-104); MAGNESIUM 2.3 MG/DL (1.5-2.4); POTASSIUM 4.4 MMOL/L (3.5-5.1); SODIUM 141 MMOL/L (135-145); TOTAL CARBON DIOXIDE 25.1 MMOL/L (24-32); eCRCL 28 ML/MIN; eGFR 20 ML/MIN
[2023-11-27] MEDS: sterile Talc 2 GM powder vial IPL ONE (21:54)
[2023-11-27] MEDS: sterile Talc 3 GM powder vial (for IntraPleural Use ONLY) IPL ONE (21:55)
[2023-11-27] MEDS: dextrose 5%-1/2 normal saline 1,000 ML IV SCH (22:03)
[2023-11-28] VITALS (32 sets, daily range): BP systolic 110–180; BP diastolic 52–88; PULSE 54–85; RESP 11–21; O2SAT 91–99
[2023-11-28 02:45] LABS: BASOPHILS % (AUTO) 0 % (0-1); EOSINOPHILS % (AUTO) 0.1 % (0-6); HEMATOCRIT 34.6 % (42.0-52.0); HEMOGLOBIN 11.3 g/dl (14.0-17.9); LYMPHOCYTES # (AUTO) 0.2 X10'3 (1.1-4.8); LYMPHOCYTES % (AUTO) 0.9 % (21-51); MEAN CORPUSCULAR HEMOGLOBIN 25.3 PG (27.0-31.0); MEAN CORPUSCULAR HGB CONC 32.7 g/dL (33.0-36.5); MEAN CORPUSCULAR VOLUME 77.2 FL (78-98); MEAN PLATELET VOLUME 9.4 FL (7.4-10.4); MONOCYTES # (AUTO) 2.1 X10'3 (0-0.9); MONOCYTES % (AUTO) 9.5 % (2-12); NEUTROPHILS # (AUTO) 20.1 X10'3 (1.8-7.7); NEUTROPHILS % (AUTO) 89.5 % (42-75); PLATELET COUNT 313 X10'3 (140-440); RED BLOOD COUNT 4.48 X10'6 (4.70-6.10); RED CELL DISTRIBUTION WIDTH 14.8 % (11.5-14.5); WHITE BLOOD COUNT 22.5 X10'3 (4.5-11.0)
[2023-11-28 03:16] LABS: ALANINE AMINOTRANSFERASE 35 U/L (12-78); ALBUMIN 2.2 G/DL (3.4-5.0); ALBUMIN/GLOBULIN RATIO 0.6 (1.1-1.5); ALKALINE PHOSPHATASE 50 IU/L (46-116); ANION GAP 11 (8-16); ASPARTATE AMINO TRANSFERASE 36 U/L (10-37); BILIRUBIN,TOTAL 0.5 MG/DL (0.1-1.0); BLOOD UREA NITROGEN 49 MG/DL (7-18); BUN/CREATININE RATIO 12.5 (10.0-20.0); CALCIUM 8.3 MG/DL (8.5-10.1); CHLORIDE 106 MMOL/L (99-107); CREATININE 3.92 MG/DL (0.60-1.10); GLUCOSE 155 MG/DL (70-104); MAGNESIUM 2.2 MG/DL (1.5-2.4); PHOSPHORUS 6.2 MG/DL (2.3-4.5); SODIUM 140 MMOL/L (135-145); TOTAL CARBON DIOXIDE 23.5 MMOL/L (24-32); TOTAL PROTEIN 5.7 G/DL (6.4-8.2); TRIGLYCERIDES 54 MG/DL (20-135); eCRCL 24 ML/MIN; eGFR 16 ML/MIN
[2023-11-28 03:37] LABS: ABG BASE EXCESS -3.7 mmol/L (-2.0-2.0); ABG HCO3 21.5 mmol/L (22.0-26.0); ABG OXYGEN SATURATION 96.5 % (94-97); ABG PCO2 (T) 39.7 mmHg (35.0-48.0); ABG PH (T) 7.353 (7.340-7.440); ABG PO2 (T) 85.6 mmHg (75.0-100.0); FCOHb 0.7 % (0.0-3.9); FHHb 3.5 % (0.0-5.0); FMetHb 0.3 % (0.0-1.5); FO2Hb 95.5 % (94-97); PATIENT TEMPERATURE 37.1; RESPIRATORY RATE 12 b/min; TIDAL VOLUME 600 mL; TOTAL HEMOGLOBIN 12.1 G/dl (14.0-17.9)
[2023-11-28] MEDS ORDERED: naloxone 0.4 mg/ml inj IV PRN (11:20)
[2023-11-28] MEDS: gabapentin 300mg capsule PO SCH (11:42)
[2023-11-28] MEDS: PCA WASTE DOCUMENTATION 1 MG ML MC SCH (12:00)
[2023-11-28] MEDS: HYDROmorph/NS 0.2 mg/ml PCA 100 ML IV SCH ×2 (13:00→19:00)
[2023-11-28] MEDS ORDERED: mineral oil/petrolatum ophthal oint EACHEYE SCH (20:00)
[2023-11-29] VITALS (26 sets, daily range): BP systolic 115–153; BP diastolic 47–71; PULSE 54–74; RESP 12–21; O2SAT 93–99
[2023-11-29 03:52] LABS: BASOPHILS # (AUTO) 0.1 X10'3 (0-0.2); BASOPHILS % (AUTO) 0.4 % (0-1); EOSINOPHILS # (AUTO) 0.1 X10'3 (0-0.9); EOSINOPHILS % (AUTO) 1.1 % (0-6); HEMATOCRIT 33.9 % (42.0-52.0); HEMOGLOBIN 11.1 g/dl (14.0-17.9); LYMPHOCYTES # (AUTO) 0.7 X10'3 (1.1-4.8); LYMPHOCYTES % (AUTO) 5.2 % (21-51); MEAN CORPUSCULAR HEMOGLOBIN 25.2 PG (27.0-31.0); MEAN CORPUSCULAR HGB CONC 32.7 g/dL (33.0-36.5); MEAN CORPUSCULAR VOLUME 77.3 FL (78-98); MEAN PLATELET VOLUME 9.6 FL (7.4-10.4); MONOCYTES # (AUTO) 1.9 X10'3 (0-0.9); MONOCYTES % (AUTO) 13.4 % (2-12); NEUTROPHILS # (AUTO) 11.2 X10'3 (1.8-7.7); NEUTROPHILS % (AUTO) 79.9 % (42-75); PLATELET COUNT 278 X10'3 (140-440); RED BLOOD COUNT 4.39 X10'6 (4.70-6.10); RED CELL DISTRIBUTION WIDTH 14.9 % (11.5-14.5)
[2023-11-29 04:27] LABS: ALANINE AMINOTRANSFERASE 19 U/L (12-78); ALBUMIN 2.1 G/DL (3.4-5.0); ALBUMIN/GLOBULIN RATIO 0.6 (1.1-1.5); ALKALINE PHOSPHATASE 49 IU/L (46-116); ANION GAP 12 (8-16); ASPARTATE AMINO TRANSFERASE 27 U/L (10-37); BILIRUBIN,TOTAL 0.6 MG/DL (0.1-1.0); BLOOD UREA NITROGEN 52 MG/DL (7-18); CALCIUM 8.5 MG/DL (8.5-10.1); CHLORIDE 103 MMOL/L (99-107); CREATININE 4.35 MG/DL (0.60-1.10); GLUCOSE 91 MG/DL (70-104); MAGNESIUM 2.4 MG/DL (1.5-2.4); PHOSPHORUS 6.1 MG/DL (2.3-4.5); POTASSIUM 4.5 MMOL/L (3.5-5.1); SODIUM 137 MMOL/L (135-145); TOTAL CARBON DIOXIDE 21.7 MMOL/L (24-32); TOTAL PROTEIN 5.9 G/DL (6.4-8.2); eCRCL 21 ML/MIN; eGFR 15 ML/MIN
[2023-11-29] MEDS: gabapentin 300mg capsule PO SCH (07:58)
[2023-11-29 12:18] LABS: BILIRUBIN,URINE NEGATIVE (Neg); CLARITY,URINE CLEAR (Clear); COLOR,URINE YELLOW (Yellow); GLUCOSE, URINE NEGATIVE (Neg); KETONES,URINE NEGATIVE (Neg); LEUKOCYTE ESTERASE ,URINE NEGATIVE (Neg); NITRITES, URINE NEGATIVE (Neg); OCCULT BLOOD,URINE NEGATIVE (Neg); PH,URINE 5.5 (4.8-8.0); PROTEIN,URINE TRACE mg/dl (Neg); UROBILINOGEN,URINE 0.2 E.U/dL (0.2-1.0)
[2023-11-29 12:22] LABS: UA COLLECTION TYPE NON-SPECIFIED
[2023-11-29 12:30] LABS: COARSE GRANULAR CAST 0-3 /LPF (NEGATIVE)
[2023-11-29 12:33] LABS: BACTERIA,URINE FEW /HPF (Neg); RBC,URINE 0-2 /HPF (0-2); SQUAMOUS EPITHELIAL CELL,UR FEW /LPF (FEW); TRANSITIONAL EPI CELLS,URINE MODERATE /HPF; WBC,URINE 0-4 /HPF (0-4)
[2023-11-29 23:10] LABS: ALDOSTERONE 7.2 ng/dL (.)
[2023-11-30] VITALS (20 sets, daily range): BP systolic 120–167; BP diastolic 57–78; PULSE 61–86; RESP 11–21; TEMP 97–99.1; O2SAT 90–99
[2023-11-30 03:21] LABS: BASOPHILS # (AUTO) 0.1 X10'3 (0-0.2); BASOPHILS % (AUTO) 0.5 % (0-1); EOSINOPHILS # (AUTO) 0.2 X10'3 (0-0.9); EOSINOPHILS % (AUTO) 1.8 % (0-6); HEMATOCRIT 32.5 % (42.0-52.0); HEMOGLOBIN 10.7 g/dl (14.0-17.9); LYMPHOCYTES # (AUTO) 0.8 X10'3 (1.1-4.8); LYMPHOCYTES % (AUTO) 6.8 % (21-51); MEAN CORPUSCULAR HEMOGLOBIN 25.4 PG (27.0-31.0); MEAN PLATELET VOLUME 9.5 FL (7.4-10.4); MONOCYTES # (AUTO) 1.5 X10'3 (0-0.9); MONOCYTES % (AUTO) 13.3 % (2-12); NEUTROPHILS % (AUTO) 77.6 % (42-75); PLATELET COUNT 281 X10'3 (140-440); RED BLOOD COUNT 4.22 X10'6 (4.70-6.10); RED CELL DISTRIBUTION WIDTH 15.1 % (11.5-14.5); WHITE BLOOD COUNT 11.5 X10'3 (4.5-11.0)
[2023-11-30 03:30] LABS: ALANINE AMINOTRANSFERASE 16 U/L (12-78); ALBUMIN 1.9 G/DL (3.4-5.0); ALBUMIN/GLOBULIN RATIO 0.5 (1.1-1.5); ALKALINE PHOSPHATASE 60 IU/L (46-116); ANION GAP 10 (8-16); ASPARTATE AMINO TRANSFERASE 22 U/L (10-37); BILIRUBIN,TOTAL 0.4 MG/DL (0.1-1.0); BLOOD UREA NITROGEN 63 MG/DL (7-18); BUN/CREATININE RATIO 14.5 (10.0-20.0); CALCIUM 8.3 MG/DL (8.5-10.1); CHLORIDE 101 MMOL/L (99-107); CREATININE 4.34 MG/DL (0.60-1.10); GLUCOSE 94 MG/DL (70-104); MAGNESIUM 2.3 MG/DL (1.5-2.4); PHOSPHORUS 6.1 MG/DL (2.3-4.5); POTASSIUM 4.3 MMOL/L (3.5-5.1); SODIUM 135 MMOL/L (135-145); TOTAL PROTEIN 5.6 G/DL (6.4-8.2); eCRCL 21 ML/MIN; eGFR 15 ML/MIN
[2023-11-30 10:23] LABS: NORMETANEPHRINE, PL 149.9 pg/mL (0.0-218.9)
[2023-11-30] MEDS: PCA WASTE DOCUMENTATION 1 MG ML MC SCH (10:42)
[2023-11-30] MEDS: traZODone 50mg tablet PO SCH (20:36)
[2023-11-30] MEDS: magnesium hydroxide 30ml (MOM) UD suspension PO ONE (20:36)
[2023-12-01] VITALS (11 sets, daily range): BP systolic 118–172; BP diastolic 49–78; PULSE 62–75; RESP 14–20; TEMP 97.9–99.4; O2SAT 94–100
[2023-12-01 07:52] LABS: BASOPHILS # (AUTO) 0.1 X10'3 (0-0.2); BASOPHILS % (AUTO) 0.8 % (0-1); EOSINOPHILS # (AUTO) 0.2 X10'3 (0-0.9); EOSINOPHILS % (AUTO) 2.2 % (0-6); HEMATOCRIT 34.5 % (42.0-52.0); HEMOGLOBIN 11.7 g/dl (14.0-17.9); LYMPHOCYTES # (AUTO) 0.7 X10'3 (1.1-4.8); LYMPHOCYTES % (AUTO) 7.2 % (21-51); MEAN CORPUSCULAR HGB CONC 33.8 g/dL (33.0-36.5); MEAN PLATELET VOLUME 9.2 FL (7.4-10.4); MONOCYTES # (AUTO) 1.1 X10'3 (0-0.9); MONOCYTES % (AUTO) 11.5 % (2-12); NEUTROPHILS # (AUTO) 7.4 X10'3 (1.8-7.7); NEUTROPHILS % (AUTO) 78.3 % (42-75); PLATELET COUNT 296 X10'3 (140-440); RED BLOOD COUNT 4.49 X10'6 (4.70-6.10); WHITE BLOOD COUNT 9.5 X10'3 (4.5-11.0)
[2023-12-01 08:18] LABS: ALANINE AMINOTRANSFERASE 21 U/L (12-78); ALBUMIN 2.1 G/DL (3.4-5.0); ALBUMIN/GLOBULIN RATIO 0.5 (1.1-1.5); ALKALINE PHOSPHATASE 66 IU/L (46-116); ANION GAP 9 (8-16); ASPARTATE AMINO TRANSFERASE 20 U/L (10-37); BILIRUBIN,TOTAL 0.4 MG/DL (0.1-1.0); BLOOD UREA NITROGEN 63 MG/DL (7-18); BUN/CREATININE RATIO 17.2 (10.0-20.0); CALCIUM 8.2 MG/DL (8.5-10.1); CHLORIDE 101 MMOL/L (99-107); CREATININE 3.66 MG/DL (0.60-1.10); GLUCOSE 96 MG/DL (70-104); MAGNESIUM 2.3 MG/DL (1.5-2.4); PHOSPHORUS 4.4 MG/DL (2.3-4.5); POTASSIUM 4.1 MMOL/L (3.5-5.1); SODIUM 133 MMOL/L (135-145); TOTAL CARBON DIOXIDE 22.8 MMOL/L (24-32); TOTAL PROTEIN 6.1 G/DL (6.4-8.2); eCRCL 25 ML/MIN; eGFR 18 ML/MIN
[2023-12-01] MEDS: HYDROcodone/acetaminophen 10/325mg tab PO PRN (09:22)
[2023-12-02] VITALS (9 sets, daily range): BP systolic 143–173; BP diastolic 66–75; PULSE 62–77; RESP 12–19; TEMP 97.1–98.1; O2SAT 95–96
[2023-12-02] MEDS: CefTRIAXone 2gm/D5W 50ml BAG 50 ML IV SCH (07:07)
[2023-12-02] MEDS: HYDROcodone/acetaminophen 10/325mg tab PO PRN (07:09)
[2023-12-02 07:12] LABS: BASOPHILS # (AUTO) 0.1 X10'3 (0-0.2); EOSINOPHILS # (AUTO) 0.3 X10'3 (0-0.9); HEMOGLOBIN 12.1 g/dl (14.0-17.9); LYMPHOCYTES # (AUTO) 0.9 X10'3 (1.1-4.8); LYMPHOCYTES % (AUTO) 9.9 % (21-51); MEAN CORPUSCULAR HGB CONC 33.6 g/dL (33.0-36.5); MEAN CORPUSCULAR VOLUME 77.4 FL (78-98); MEAN PLATELET VOLUME 8.7 FL (7.4-10.4); MONOCYTES # (AUTO) 1.1 X10'3 (0-0.9); MONOCYTES % (AUTO) 12.5 % (2-12); NEUTROPHILS # (AUTO) 6.6 X10'3 (1.8-7.7); NEUTROPHILS % (AUTO) 73.6 % (42-75); PLATELET COUNT 320 X10'3 (140-440); RED BLOOD COUNT 4.65 X10'6 (4.70-6.10); RED CELL DISTRIBUTION WIDTH 14.9 % (11.5-14.5)
[2023-12-02 07:29] LABS: ALANINE AMINOTRANSFERASE 18 U/L (12-78); ALBUMIN 2.2 G/DL (3.4-5.0); ALBUMIN/GLOBULIN RATIO 0.5 (1.1-1.5); ALKALINE PHOSPHATASE 69 IU/L (46-116); ANION GAP 10 (8-16); ASPARTATE AMINO TRANSFERASE 18 U/L (10-37); BILIRUBIN,TOTAL 0.3 MG/DL (0.1-1.0); BLOOD UREA NITROGEN 71 MG/DL (7-18); BUN/CREATININE RATIO 19.9 (10.0-20.0); CALCIUM 8.7 MG/DL (8.5-10.1); CHLORIDE 101 MMOL/L (99-107); CREATININE 3.56 MG/DL (0.60-1.10); GLUCOSE 96 MG/DL (70-104); MAGNESIUM 2.4 MG/DL (1.5-2.4); PHOSPHORUS 5.2 MG/DL (2.3-4.5); POTASSIUM 4.2 MMOL/L (3.5-5.1); SODIUM 135 MMOL/L (135-145); TOTAL CARBON DIOXIDE 23.9 MMOL/L (24-32); TOTAL PROTEIN 6.5 G/DL (6.4-8.2); eCRCL 26 ML/MIN; eGFR 18 ML/MIN
[2023-12-02 19:50] LABS: RENIN, PLASMA 6.4 ng/mL/hr (.)
[2023-12-03] VITALS: BP 153/68; PULSE 62; RESP 14; TEMP 97.7; O2SAT 95
[2023-12-03 06:00] VITALS: BP 135/78; PULSE 80; RESP 20; TEMP 97.8; O2SAT 96
[2023-12-03 08:00] VITALS: RESP 20; O2SAT 96
[2023-12-03 09:19] LABS: BASOPHILS # (AUTO) 0.1 X10'3 (0-0.2); BASOPHILS % (AUTO) 0.9 % (0-1); EOSINOPHILS # (AUTO) 0.2 X10'3 (0-0.9); EOSINOPHILS % (AUTO) 2.7 % (0-6); HEMATOCRIT 36.6 % (42.0-52.0); HEMOGLOBIN 12.1 g/dl (14.0-17.9); LYMPHOCYTES # (AUTO) 0.5 X10'3 (1.1-4.8); LYMPHOCYTES % (AUTO) 6.4 % (21-51); MEAN CORPUSCULAR HEMOGLOBIN 25.6 PG (27.0-31.0); MEAN CORPUSCULAR HGB CONC 33.1 g/dL (33.0-36.5); MEAN CORPUSCULAR VOLUME 77.4 FL (78-98); MONOCYTES # (AUTO) 0.9 X10'3 (0-0.9); MONOCYTES % (AUTO) 10.9 % (2-12); NEUTROPHILS # (AUTO) 6.8 X10'3 (1.8-7.7); NEUTROPHILS % (AUTO) 79.1 % (42-75); PLATELET COUNT 345 X10'3 (140-440); RED BLOOD COUNT 4.73 X10'6 (4.70-6.10); RED CELL DISTRIBUTION WIDTH 14.6 % (11.5-14.5); WHITE BLOOD COUNT 8.6 X10'3 (4.5-11.0)
[2023-12-03 09:51] LABS: ALANINE AMINOTRANSFERASE 21 U/L (12-78); ALBUMIN 2.3 G/DL (3.4-5.0); ALBUMIN/GLOBULIN RATIO 0.6 (1.1-1.5); ALKALINE PHOSPHATASE 56 IU/L (46-116); ANION GAP 9 (8-16); ASPARTATE AMINO TRANSFERASE 16 U/L (10-37); BILIRUBIN,TOTAL 0.3 MG/DL (0.1-1.0); BLOOD UREA NITROGEN 64 MG/DL (7-18); BUN/CREATININE RATIO 20.6 (10.0-20.0); CALCIUM 8.9 MG/DL (8.5-10.1); CHLORIDE 104 MMOL/L (99-107); CREATININE 3.11 MG/DL (0.60-1.10); GLUCOSE 102 MG/DL (70-104); POTASSIUM 4.4 MMOL/L (3.5-5.1); SODIUM 137 MMOL/L (135-145); TOTAL CARBON DIOXIDE 24.4 MMOL/L (24-32); TOTAL PROTEIN 6.4 G/DL (6.4-8.2); eCRCL 30 ML/MIN; eGFR 22 ML/MIN
[2023-12-03 11:00] VITALS: BP 178/71; PULSE 75; RESP 15; TEMP 98.9; O2SAT 96
[2023-12-03 12:00] VITALS: BP 160/80
[2023-12-03] MEDS ORDERED: TRAZ-251 PO (15:15)
[2023-12-03] MEDS ORDERED: METO-395 PO (15:15)
[2023-12-03] MEDS ORDERED: DOCU100C40 PO (15:15)
[2023-12-03] MEDS ORDERED: HYDR25TA90 PO (15:15)
[2023-12-03] MEDS ORDERED: LOSA50TA64 PO (15:15)
[2023-12-03] MEDS ORDERED: NOR5T PO (15:15)
[2023-12-03] MEDS ORDERED: HYDR-3972 PO (15:15)
[2023-12-03 15:21] VITALS: BP_SYST 160; PULSE 75
== END 2023-12-03 16:38 | disposition home or self-care (01) | DRG 163 ==
LOC: ER 12:28 → ED HOLD 16:25 → PCU 3S 19:35 → PACU 11-27 17:50 → CICU 2S 11-27 20:53 → PCU 3S 11-30 16:11
PROVIDERS: ADMIT Family Medicine; ATTEND Family Medicine
PROC: 0W9B3ZZ Drainage of Left Pleural Cavity, Percutaneous Approach (ICD-10-PCS; principal; 2023-11-22)
PROC: 0W993ZZ Drainage of Right Pleural Cavity, Percutaneous Approach (ICD-10-PCS; 2023-11-22)
PROC: 4A02XM4 Measurement of Cardiac Total Activity, External Approach (ICD-10-PCS; 2023-11-25)
PROC: 3E073KZ Introduction of Other Diagnostic Substance into Coronary Artery, Percutaneous Approach (ICD-10-PCS; 2023-11-25)
PROC: 0BBN0ZZ Excision of Right Pleura, Open Approach (ICD-10-PCS; 2023-11-27)
PROC: 0BNC0ZZ Release Right Upper Lung Lobe, Open Approach (ICD-10-PCS; 2023-11-27)
PROC: 0BNF0ZZ Release Right Lower Lung Lobe, Open Approach (ICD-10-PCS; 2023-11-27)
PROC: 3E0L3GC Introduction of Other Therapeutic Substance into Pleural Cavity, Percutaneous Approach (ICD-10-PCS; 2023-11-27)
PROC: 0W9930Z Drainage of Right Pleural Cavity with Drainage Device, Percutaneous Approach (ICD-10-PCS; 2023-11-27)
PROC: CT631ZZ Nonimaging Nuclear Medicine Assay of Kidneys, Ureters and Bladder using Technetium 99m (Tc-99m) (ICD-10-PCS; 2023-11-30)
PROC: BW241ZZ Computerized Tomography (CT Scan) of Chest and Abdomen using Low Osmolar Contrast (ICD-10-PCS; 2023-12-02)
DX: J94.2 Hemothorax (principal); I50.23 Acute on chronic systolic (congestive) heart failure; N17.0 Acute kidney failure with tubular necrosis; J98.19 Other pulmonary collapse; I13.0 Hypertensive heart and chronic kidney disease with heart failure and stage 1 through stage 4 chronic kidney disease, or unspecified chronic kidney disease; I16.1 Hypertensive emergency; I42.9 Cardiomyopathy, unspecified; E87.1 Hypo-osmolality and hyponatremia; N18.9 Chronic kidney disease, unspecified; D64.9 Anemia, unspecified; E87.6 Hypokalemia; Z87.891 Personal history of nicotine dependence
CPT/HCPCS: 32554; 93306; 96374; 96375; 99291; Z7506; Z7508; 36415; 36600; 71045; 71250; 76604; 76770; 78452; 78707; 80048; 80053; 80061; 80305; 81001; 82088; 82570; 82728; 82803; 82945; 82948; 83036; 83540; 83615; 83735; 83835; 83880; 84100; 84132; 84145; 84156; 84157; 84244; 84300; 84439; 84443; 84466; 84478; 84484; 85018; 85025; 85045; 85610; 85651; 85730; 86038; 86060; 86160; 86256; 86430; 86703; 87070; 87081; 87340; 89051; 93005; 93017; 93975; 94002; 94003; 94760; 97161; 97530; A4215; A4615; A4618; A6258; A6402; A6449; A7000; A7048; A9500; A9562; C1751; C1758; G0378; J0360; J0456; J0690; J0696; J1170; J1644; J1940; J2250; J2270; J2405; J2704; J2785; J3010; J3490; J7040; J7120